=== PATIENT | male | born 1955 | race Caucasian/White ===

== ENCOUNTER → 2022-09-04 | Outpatient (CLI) | payer MEDICARE ==
--- NOTE | 2022-09-04 14:25 | Diagnostic Imaging Report ---
EXAMINATION: CT chest without contrast (lung screening). TECHNIQUE: Multiple contiguous axial images were obtained through the chest without the use of intravenous contrast according to lung cancer screening protocol. All CT scans use one or more of the following dose optimizing techniques: automated exposure control, MA and/or KvP adjustment based on patient size and exam type or iterative reconstruction. HISTORY: 35 pack year history of smoking. COMPARISON: None available. FINDINGS: There is no edema or pneumonia. No pleural effusion. No pneumothorax. No suspicious nodules. There is no axillary or supraclavicular lymphadenopathy. There is no mediastinal lymphadenopathy. Heart size is normal. There are severe coronary artery calcifications. No pericardial effusion. Aorta is normal in caliber. Limited views of the upper abdomen are unremarkable. There are no suspicious osseus lesions. IMPRESSION: 1. No suspicious pulmonary nodules. LUNG-RADS CATEGORY: 1 MODIFIER: None. Dictated by: Dictated on workstation # [id number]
== END ==
LOC: RAD 13:15
PROVIDERS: ATTEND Family Medicine
DX: F17.210 Nicotine dependence, cigarettes, uncomplicated (principal)
CPT/HCPCS: 71271

== ENCOUNTER → 2022-10-10 | Outpatient (CLI) | payer MEDICARE | LOC: CARD 10:00 | PROVIDERS: ATTEND Family Medicine | DX: I11.9 Hypertensive heart disease without heart failure (principal); I25.10 Atherosclerotic heart disease of native coronary artery without angina pectoris | CPT/HCPCS: 93306 ==

== ENCOUNTER → 2022-10-29 | Outpatient (CLI) | payer MEDICARE ==
[~2022-10-29] MED LIST: CATHETER FLUSH 10 ML SYR IVP PRN
[2022-10-29 09:14] VITALS: BP 126/75
--- NOTE | 2022-10-29 11:44 | Cardiology Stress Test Report ---
Stress Test Report Date of Procedure/Referring: Date of Procedure: Oct 29, 2022 PCP Fei Stern MD Admitting Physician Admitting Physician: Attending Physician: Tahira Kaye Indications: CAD Baseline Heart Rate: 50 Baseline Blood Pressure: Blood Pressure Systolic: 126 Blood Pressure Diastolic: 75 Vital Signs Date Time Temp Pulse Resp B/P (MAP) Pulse Ox O2 Delivery O2 Flow Rate FiO2 10/29/22 09:14 50 126/75 (92) Baseline Vital Signs Vital Signs Date Time Temp Pulse Resp B/P (MAP) Pulse Ox O2 Delivery O2 Flow Rate FiO2 10/29/22 09:14 50 126/75 (92) Baseline EKG: Baseline EKG: NSR Summary: After explaining the procedure and details to the patient, he signed the consent and was brought to the stress nuclear laboratory. Patient exercised on standard Aneudy protocol, EKG, heart rate and blood pressure were monitored continuously, resting and stress doses of radio tracer were injected, imaging was acquired and reviewed in the short axis, horizontal long axis and vertical long axis views Patient was able to exercise for a total of 7 minutes on Aneudy protocol, METs 7.9 Maximum heart rate 145 Maximum blood pressure 195/73 Stress EKG, Minimal nondiagnostic changes Recovery EKG, Return to baseline TID: 1.12 SSS: 4 SDS: 4 EF: 54 Conclusion: Patient was able to exercise for 7 minutes on standard Aneudy protocol, 7.9 METS achieving 94% of maximal expected heart rate Appropriate heart rate response to exercise with multiple episodes of paroxysmal atrial tachycardia noted during recovery Hypertensive response to exercise with peak blood pressure 195/73 return to baseline during recovery Reversible ischemia involving the mid to apical inferior wall Normal left ventricular size, ejection fraction 54% Copy Copies To 1: [facility] DIAS MD Oct 29, 2022 11:44
== END ==
LOC: CARD 07:45
PROVIDERS: ATTEND Physician Assistant
DX: I25.10 Atherosclerotic heart disease of native coronary artery without angina pectoris (principal); I10 Essential (primary) hypertension
CPT/HCPCS: 78452; 93017; A9502

== ENCOUNTER 2022-11-05 09:00 | Day surgery (SDC) | payer MEDICARE ==
[~2022-11-05] VITALS: Ht 170.2 cm; Wt 78.0 kg
[2022-11-05] VITALS (10 sets, daily range): BP systolic 100–134; BP diastolic 54–74
[2022-11-05 07:29] LABS: BILIRUBIN,URINE NEGATIVE (NEGATIVE); CLARITY,URINE CLEAR; COLOR,URINE YELLOW; GLUCOSE, URINE (UA) NEGATIVE (NEGATIVE); KETONES,URINE NEGATIVE (NEGATIVE); LEUKOCYTE ESTERASE ,URINE NEGATIVE (NEGATIVE); NITRITE,URINE NEGATIVE (NEGATIVE); PH,URINE 5.5 (5-9); PROTEIN,URINE NEGATIVE (NEGATIVE)
[2022-11-05 07:29] LABS: HEMATOCRIT 50 % (40-54); HEMOGLOBIN 16.9 g/dL (13.3-17.7); MEAN CORPUSCULAR HEMOGLOBIN 30 pg (25-34); MEAN CORPUSCULAR HGB CONC 34 g/dL (32-36); MEAN CORPUSCULAR VOLUME 90 fL (80-99); MEAN PLATELET VOLUME 10.1 fL (9.0-12.2); PLATELET COUNT 186 10^3/uL (130-400); WHITE BLOOD COUNT 8.5 10^3/uL (4.3-11.0)
[2022-11-05 07:38] LABS: BACTERIA,URINE NEGATIVE /HPF; RBC,URINE RARE /HPF; SQUAMOUS EPITHELIAL CELL,UR RARE /HPF
[2022-11-05 07:41] LABS: PROTHROMBIN TIME PATIENT 13.5 SEC (12.2-14.7)
[2022-11-05 07:49] LABS: ALBUMIN 4.4 GM/DL (3.2-4.5); CALCIUM 9.4 MG/DL (8.5-10.1); CREATININE SERUM 1.34 MG/DL (0.60-1.30); POTASSIUM 4.1 MMOL/L (3.6-5.0); TOTAL PROTEIN 7.2 GM/DL (6.4-8.2)
--- NOTE | 2022-11-05 08:03 | Cardiac Procedure Note-CS/ASA ---
Pre-Procedure Note Pre-Op Procedure Note Date of Available H&P: Oct 30, 2022 Date H&P Reviewed: Nov 05, 2022 Time H&P Reviewed: 08:02 History & Physical: H&P Reviewed, Patient Examed, No changes noted Pre-Operative Diagnosis: CAD, PAD Moderate Sedation PreProcedure Time 08:02 ASA Score 3 Airway Lungs Heart ASA score ASA 1: a normal healthy patient ASA 2: a patient with a mild systemic disease (mid diabetes, controlled hypertension, obesity ASA 3: a patient with a severe systemic disease that limits activity (angina, COPD, prior Myocardial infarction) ASA 4: a patient with an incapacitating disease that is a constant threat to life (CHF, renal failure) ASA 5: a moribund patient not expected to survive 24 hrs. (ruptured aneurysm) ASA 6: a declared brain- patient whose organs are being harvested. For emergent operations, add the letter E after the classification Mallampati Classification Grade 3 Sedation Plan Analgesia, Amnesia, Plan communicated to team members, Discussed options with patient/fam, Discussed risks with patient/fam The patient is an appropriate candidate to undergo the planned procedure, sedation, and anesthesia. The patient immediately re-assessed prior to indication. AGA RICKS MD Nov 05, 2022 08:02
--- NOTE | 2022-11-05 08:46 | Diagnostic Imaging Report ---
INDICATION: Chest pain and abnormal stress test Single AP view of the chest is obtained COMPARISON: No previous study is available for comparison at this time. FINDINGS: Heart size and pulmonary vasculature are within normal limits, and the lungs are clear, bilaterally. IMPRESSION: Unremarkable chest. Dictated by: Dictated on workstation # [id number]
[~2022-11-05 09:00] MED LIST changes: +ASPI-1238 PO; +ATOR40TA70 PO; -CATHETER FLUSH 10 ML SYR IVP PRN; +CLOP75TA28 PO; +HEParin (CATH LAB) 2,000 ML IV ONE; +LEVO100C4 PO; +LIDOCAINE 1% INJ 20 ML VIAL ONE; +LISI5TAB20 PO; +MIDAZOLAM 5 MG/5 ML (VERSED) VIAL ONE; +MULT-1067 PO; +NS IV 1000 ML 1,000 ML IV SCH; +NS IV 1000 ML 1,000 ML ONE; +PATIENT MAY USE OWN MEDS, ALL PO SCH; +fentaNYL INJ 100 MCG/2 ML AMP ONE
--- NOTE | 2022-11-05 09:00 | Discharge Inst-Post CATH ---
Discharge Inst-CATH/EP Problems Reviewed?: Yes Post Cardiac Cath/EP D/C Inst Follow Up/Plan Appointment with Dr. Madrid's office in 2 to 4 weeks <b>CARDIAC CATH/EP PROCEDURE DISCHARGE INSTRUCTIONS</b> ACTIVITY * Go Home directly and rest. * Limit activity of the leg (or wrist if it was used) for 7 days including aer obics, swimming, jogging, bicycling, etc. * Restrict stair-climbing for 7 days if possible, if not, climb up with your non-cath leg, then bring together on the same step. * Avoid lifting, pushing, pulling or excessive movement of the affected extremi ty for 7 days. * Customary sexual activity may be resumed after 2 days-use caution not to use a position that strains or causes pain to the affected extremity. * No driving for 24 hours. * NO SMOKING. * Avoid straining for bowel movements for 7 days. * Gentle walking on level ground is allowed. * Returning to work will depend on the type of procedure and the results. Your doctor will discuss this with you. CALL YOUR DOCTOR FOR ANY OF THE FOLLOWING: *If bleeding from the puncture site occurs- Apply gentle pressure to site with clean cloth and call your doctor or EMS. * If a knot or lump forms under the skin, increases in size, or causes pain. * If bruising appears to be worsening or moving further down your leg instead of disappearing. * Temperature above 101 F. CARE OF YOUR GROIN INCISION; * Bruising or purple discoloration of the skin near the puncture site is common. * You may shower only, no bathtub bathing for 5 days. Be careful to avoid slipping as your leg may feel stiff. * If a closure device was used on your femoral artery, please see the attached guide regarding care of the device and your leg. * Leave dressing on FOR 24 hours. CARE OF YOUR WRIST INCISION; * Bruising or purple discoloration of the skin near the puncture site is common. * You may shower. * DO NOT submerge wrist. * Leave dressing on FOR 24 hours. AGA MADRID MD Nov 05, 2022 09:00
--- NOTE | 2022-11-05 09:07 | Cardiac Cath Report ---
Cardiac Cath Report Physician (s)/Human Resources Project Manager (s) Physician AGA RICKS MD Pre-Procedure Diagnosis Pre-Procedure Diagnosis: CAD, PAD Post-Procedure Note Procedure Start Date: Nov 05, 2022 Procedure Start Time: 09:00 Name of Procedure: Left heart catheterization Aortic arch angiogram Abdominal aortogram with bilateral lower extremities runoff First order Additional imaging x2 Findings/Procedure Note PROCEDURE NOTE: 67-year-old gentleman with chest pain, angina equivalent with shortness of breath, borderline stress test, extensive peripheral arterial disease, scheduled for cardiac catheterization and peripheral angiogram. After explaining the procedure to the patient, all pros and cons were explained, all questions were answered. The patient signed the consent and then he was placed in the cardiac catheterization laboratory. Groin was prepped in SL fashion local anesthesia was used. Sheath placed in the right femoral artery. Sundar' right and left catheter were used to access the coronary system. Pigtail was used to access the left ventricular cavity. Left ventriculogram was not done, pressure was measured Aortic arch angiogram was done, patient has heavy calcification during carotid ultrasound suggestive of heavy plaque in the origin of the carotids. Pigtail catheter was placed at the abdominal aorta and abdominal aortogram with bilateral lower extremities runoff was done. I was unable to visualize both legs in the same time. I pulled the catheter down and placed it just above the bifurcation and did runoff and did angiogram with runoff to the left leg then I did another injection through the sheath in the right lower extremity and followed it down. Repeated DSA imaging at the level of the trifurcation on the right leg. At the end of the procedure the sheath was removed. Closure device was deployed FINDINGS: Hemodynamics LV 115/24, end-diastolic pressure of 24 Aorta 110/57 mean of 81 ANATOMY: Left Main has ostial 50 to 60% stenosis Left Anterior Descending is moderate in size with 80% stenosis in the mid LAD involving a bifurcation with a second diagonal branch Left Circumflex is large dominant artery with subtotal occlusion in the mid circumflex artery at the bifurcation with the obtuse marginal. Right Coronary Artery is nondominant artery with mild disease nonobstructive disease LV Gram was not done, pressure was measured Aortic arch angiogram showed normal aortic arch, no dissection or aneurysm, heavy calcification at the origin of the right brachiocephalic artery, mild disease, the left carotid artery is normal and the left subclavian artery is normal. Abdominal aortogram: Abdominal aorta is normal in size. A stent involving the lower abdominal aorta with the bifurcation and the iliac artery that is patent. No obstructive disease Renal arteries are normal, BOONE and SMA are normal Right lower extremity: The stent at the iliac arteries are patent Right common femoral artery is normal Right SFA has no obstructive disease down to the trifurcation Evaluation of the trifurcation with DSA imaging showed no obstructive disease in the anterior tibial/posterior tibial or peroneal arteries. Left lower extremity: Stent in the iliacs is patent Left common femoral artery has no obstructive disease Left SFA has 50% stenosis at the midportion Left tibioperoneal trunk has a stent that has 80% in-stent restenosis with a pinch involving the ostium of the anterior tibial artery, the posterior tibial artery is occluded at the midportion, the peroneal artery is patent. CONCLUSION: Severe multivessel coronary artery disease including ostial left main with 50 to 60% stenosis, mid LAD with 80% stenosis involving the ostium of the diagonal artery and subtotal occlusion in the dominant circumflex artery involving a bifurcation with the obtuse marginal. Elevated left ventricular end-diastolic pressure, known ejection fraction to be 50% from the SPECT images Normal aortic arch with calcification at the origin of the right brachiocephalic artery, mild disease nonobstructive disease Previous aortic stent with bifurcation stent in the iliac arteries that is patent. Severe in-stent restenosis in the left tibioperoneal trunk and severe ostial stenosis at the end anterior tibial artery, occlusion at the mid posterior tibial artery Nonobstructive disease on the right lower extremity DISCUSSION AND RECOMMENDATION: Patient will be referred for evaluation for CABG and he will need evaluation for vascular surgery for possible femoropopliteal bypass Anesthesia Type: Conscious Sedation Estimated blood loss (mL): 20 ml Contrast Amount: 88 ml Total Radiation Dose: 336 mGy Post-Procedure Diagnosis Post-operative diagnosis: Chest pain Coronary artery disease Peripheral arterial disease Hypertension Hyperlipidemia AGA RICKS MD Nov 05, 2022 09:07
== END 2022-11-05 13:28 | disposition home or self-care (01) ==
LOC: CATH 09:00 → SDC 09:18 → CATH 13:28
PROVIDERS: ATTEND Internal Medicine Cardiovascular Disease
DX: I25.10 Atherosclerotic heart disease of native coronary artery without angina pectoris (principal); I73.9 Peripheral vascular disease, unspecified; I10 Essential (primary) hypertension; E78.2 Mixed hyperlipidemia; I65.23 Occlusion and stenosis of bilateral carotid arteries; E03.9 Hypothyroidism, unspecified; F17.210 Nicotine dependence, cigarettes, uncomplicated; Z79.890 Hormone replacement therapy
CPT/HCPCS: 36221; 36245; 36248; 71045; 75630; 80053; 80061; 81000; 85027; 85610; 85730; 87081; 93005; 93458; C1760; C1894; 36415